=== PATIENT | female | born 2000 | race Caucasian/White ===

== ENCOUNTER 2018-03-24 13:57 | Emergency (ER) | payer OTHER ==
[2018-03-24 15:23] LABS: URINE PH (Dip) POC 8.5 (5.0-8.5)
[2018-03-24 15:23] LABS: URINE BLOOD (Dip) POC Trace-intact (NEGATIVE); URINE GLUCOSE (Dip) POC Negative (NEGATIVE); URINE KETONES (Dip) POC Negative (NEGATIVE); URINE LEUKOCYTE EST (Dip) POC Negative (NEGATIVE); URINE NITRITE (Dip) POC Negative (NEGATIVE); URINE TOTAL PROTEIN POC Negative (NEGATIVE)
== END 2018-03-24 16:21 | disposition home or self-care (01) ==
LOC: FTE 13:57
DX: S59.911A Unspecified injury of right forearm, initial encounter (principal); W22.8XXA Striking against or struck by other objects, initial encounter; Y92.9 Unspecified place or not applicable
CPT/HCPCS: 73080; 73080-LT; 73090-RT; 81003; 99284-25

== ENCOUNTER 2018-07-16 09:04 | Emergency (ER) | payer OTHER ==
[2018-07-16] MEDS: KETOROLAC 30 MG INJ IM (10:28)
== END 2018-07-16 10:48 | disposition home or self-care (01) ==
LOC: FTE 09:04
DX: M54.6 Pain in thoracic spine (principal); J45.909 Unspecified asthma, uncomplicated
CPT/HCPCS: 72072; 81025; 96372; 99284-25

== ENCOUNTER 2018-11-09 15:02 | Emergency (ER) | payer OTHER | END 2018-11-09 17:06 | disposition home or self-care (01) | LOC: FTE 15:02 | DX: R05 Cough (principal); J45.909 Unspecified asthma, uncomplicated | CPT/HCPCS: 99283; Z7502 ==

== ENCOUNTER 2019-03-01 21:25 | Emergency (ER) | payer OTHER ==
[2019-03-02] MEDS: IBUPROFEN 600 MG TAB PO ×2 (00:27→00:30)
[2019-03-02] MEDS: ACETAMINOPHEN 325 MG TAB PO (00:27)
[2019-03-02 00:37] LABS: URINE BLOOD (Dip) POC Negative (NEGATIVE); URINE GLUCOSE (Dip) POC Negative (NEGATIVE); URINE KETONES (Dip) POC Negative (NEGATIVE); URINE LEUKOCYTE EST (Dip) POC 1+ (NEGATIVE); URINE NITRITE (Dip) POC Negative (NEGATIVE); URINE TOTAL PROTEIN POC Trace (NEGATIVE)
[2019-03-02 00:37] LABS: URINE PH (Dip) POC 6.5 (5.0-8.5)
== END 2019-03-02 02:24 | disposition home or self-care (01) ==
LOC: FTE 03-02 02:24
DX: R51 Headache (principal); J45.909 Unspecified asthma, uncomplicated
CPT/HCPCS: 70450; 81003; 81025; 99284-25

== ENCOUNTER 2019-03-25 14:10 | Emergency (ER) | payer OTHER ==
[2019-03-25] MEDS: predniSONE 20 MG TAB PO (14:31)
[2019-03-25] MEDS: DIPHENHYDRAMINE 25 MG CAP PO (14:31)
== END 2019-03-25 15:12 | disposition home or self-care (01) ==
LOC: FTE 15:12
DX: L50.9 Urticaria, unspecified (principal); J45.909 Unspecified asthma, uncomplicated
CPT/HCPCS: 99283; J7512

== ENCOUNTER 2019-03-29 20:28 | Emergency (ER) | payer OTHER ==
[2019-03-29] MEDS: DIPHENHYDRAMINE 25 MG CAP PO (23:38)
[2019-03-29] MEDS: DEXAMETHASONE 10 MG/ML 1 ML INJ IM (23:38)
[2019-03-29] MEDS: ONDANSETRON (ODT) 4 MG TAB ODT (23:38)
[2019-03-29] MEDS: FAMOTIDINE 20 MG TAB PO (23:38)
== END 2019-03-29 23:43 | disposition home or self-care (01) ==
LOC: FTE 23:43
DX: R09.89 Other specified symptoms and signs involving the circulatory and respiratory systems (principal); J45.909 Unspecified asthma, uncomplicated
CPT/HCPCS: 81025; 96372; 99284-25